=== PATIENT | male | born 1935 | race Caucasian/White ===

== ENCOUNTER 2019-04-14 13:31 | Inpatient (IN) | payer MEDICARE, BC ==
[2019-04-14] MEDS ORDERED: ASPIRIN 325 MG TAB PO STA (14:43)
--- NOTE | 2019-04-14 14:43 | ED ---
General Adult HPI - General Chief complaint: Neuro Symptoms/Deficit Stated complaint: neuro transfer, tia Time Seen by Provider: 04/14/19 13:34 Source: patient, EMS, RN notes reviewed, old records reviewed Mode of arrival: EMS Limitations: no limitations - History of Present Illness Initial comments: Patient is a pleasant 83-year-old male presenting to the emergency Department as a transfer from [facility]. Patient reportedly had an episode of syncope lasting just a minute or 2 per around 10 AM. Following this patient did have right facial droop and slurred speech. That lasted around a minute. Patient is been symptom-free since that time. Patient remained symptom-free at this time. No history of similar symptoms previously. At the other facility patient did have computed tomography scan that was reported as no acute process. Patient was transferred for neurology evaluation. Review of Systems ROS Statement: Those systems with pertinent positive or pertinent negative responses have been documented in the HPI. ROS Other: All systems not noted in ROS Statement are negative. Constitutional: Denies: fever Eyes: Denies: eye pain ENT: Denies: ear pain Respiratory: Denies: cough, dyspnea Cardiovascular: Denies: chest pain Endocrine: Denies: fatigue Gastrointestinal: Denies: abdominal pain Genitourinary: Denies: dysuria Musculoskeletal: Denies: back pain Skin: Denies: rash Neurological: Reports: as per HPI. Denies: headache Past Medical History Smoking Status: Current every day smoker Past Alcohol Use History: None Reported Past Drug Use History: None Reported General Exam Limitations: no limitations General appearance: alert, in no apparent distress Head exam: Present: normocephalic Eye exam: Present: normal appearance, PERRL, EOMI. Absent: nystagmus ENT exam: Present: normal oropharynx Neck exam: Present: normal inspection Respiratory exam: Present: normal lung sounds bilaterally Cardiovascular Exam: Present: irregular rhythm GI/Abdominal exam: Present: soft. Absent: tenderness Extremities exam: Present: normal inspection Neurological exam: Present: alert, CN II-XII intact. Absent: motor sensory deficit Expanded Neurological exam: Present: protecting the airway Patient oriented to: Present: person, place. Absent: time (Family states this is normal) Cranial nerves: EOM's Intact: Normal Sensory exam: Upper Extremity Light Touch: Normal, Lower Extremity Light Touch: Normal Motor strength exam: RUE: 5, LUE: 5, RLE: 5, LLE: 5 Eye Response: (4) open spontaneously Motor Response: (6) obeys commands Verbal Response: (4) confused conversation Psychiatric exam: Present: normal affect, normal mood Skin exam: Present: normal color Course Vital Signs 04/14/19 13:43 Temperature 97.7 F Pulse Rate 48 L Respiratory 16 Rate Blood Pressure 190/86 O2 Sat by Pulse 98 Oximetry Medical Decision Making - Medical Decision Making Patient and family are aware of results and plan. I did review chart from [facility]. Case was discussed in detail with Dr. Mills, who will admit his patient. Disposition Clinical Impression: Transient cerebral ischemia Disposition: ADMITTED IP TO THIS HOSP Is patient prescribed a controlled substance at d/c from ED?: No Referrals: Zion Mills MD [Primary Care Provider] - 1-2 days Decision Time: 14:43
--- NOTE | 2019-04-14 15:29 | US ---
EXAMINATION TYPE: US carotid duplex BILAT DATE OF EXAM: 04/14/2019 COMPARISON: NONE CLINICAL HISTORY: Stenosis. possible TIA, right facial dropping EXAM MEASUREMENTS: RIGHT: Peak Systolic Velocity (PSV) cm/sec ----- Right CCA: 65.4 ----- Right ICA: 85.8 ----- Right ECA: 103 ICA/CCA ratio: 1.3 RIGHT: End Diastole cm/sec ----- Right CCA: 12.1 ----- Right ICA: 19.7 ----- Right ECA: 11.5 LEFT: Peak Systolic Velocity (PSV) cm/sec ----- Left CCA: 58.2 ----- Left ICA: 83.2 ----- Left ECA: 90.4 ICA/CCA ratio: 1.4 LEFT: End Diastole cm/sec ----- Left CCA: 9.8 ----- Left ICA: 13.4 ----- Left ECA: 0.0 VERTEBRALS (direction of flow): Right Vertebral: Antegrade Left Vertebral: Antegrade Rhythm: Normal Heterogeneous plaque bilaterally with no significant stenosis seen IMPRESSION: Mild degree of grayscale atheromatous plaquing with no sonographically evident hemodynam ically significant stenosis within either visualized carotid arterial system. Criteria for Assigning % of Stenosis / Diameter reduction (Estimation based on the indirect measurements of the internal carotid artery velocities (ICA PSV). 1. Normal (no stenosis)=ICA PSV < 125 cm/s: ratio < 2.0: ICA EDV<40 cm/s. 2. Less than 50% stenosis=ICA PSV < 125 cm/s: ratio < 2.0: ICA EDV<40 cm/s. 3. 50 to 69% stenosis=ICA PSV of 125 to 230 cm/s: ration 2.0 ? 4.0: ICA EDV 40-100 cm/s. 4. Greater than 70% stenosis to near occlusion= ICA PSV > 230 cm/s: ratio > 4.0: ICA EDV > 100 cm/s. 5. Near occlusion= ICA PSV velocities may be low or undetectable: variable ratio and ICA EDV. 6. Total occlusion=unable to detect flow.
[2019-04-14] MEDS: SODIUM CHLORIDE 0.9% 1,000 ML IV SCH ×2 (15:55→21:30)
--- NOTE | 2019-04-14 19:28 | XR ---
EXAMINATION TYPE: XR chest 2V DATE OF EXAM: 04/14/2019 COMPARISON: NONE HISTORY: Shortness of breath TECHNIQUE: Frontal and lateral views of the chest are obtained. FINDINGS: Scattered senescent parenchymal changes noted. Hyperinflation compatible with COPD. No evidence for infiltrate. No evidence for atelectasis. Heart size is stable. Mediastinal structures are stable and grossly unremarkable. No evidence for hilar prominence. Degenerative changes dorsal spine. IMPRESSION: 1. No evidence for acute pulmonary disease.
[2019-04-14] MEDS ORDERED: WARFARIN 7.5 MG TAB PO SCH (20:00)
--- NOTE | 2019-04-14 20:10 | P.CNNES ---
History of Present Illness Consult date: 04/14/19 Requesting physician: Baron Blackmon Reason for Consult: TIA History of Present Illness: Patient is a 83-year-old right-handed male, who states that he has not been feeling well, slightly lightheaded dizzy for the last couple days. Today he was doing chores at his home, he was feeling dizzy. He sat down in the chair, and how alert and is 5. When she came in, she states he stated that he was feeling very dizzy and right after he blacked out, passed out although was not too long. When he came to, his noticed that he has slurred speech and right facial droop. He also wanted to go to the restroom, as he was feeling an urge for bowels and bladder. His tried to help him, but before he could go, he passed stools and urine in his pants. He had diarrhea since he had colon surgery for diverticulitis in the past. Patient was brought to [facility]. Patient underwent computed tomography scan of the head, which was normal. Patient was taken to [facility]. Patient's vitals in the ER was blood pressure 146/77, pulse rate 59 and respirations 12. Patient has history of hypertension, hyperlipidemia, legal blindness, atrial fibrillation, cognitive impairment, hard of hearing. Patient has history of macular degeneration, legal blindness, left worse than right. Patient when arrived to the ER, his NIH stroke scale was 0. CT head was negative. There is progression of atrophic changes and abnormal areas of low-attenuation involving the periventricular white matter of both cerebral hemisphere as compared to the prior study. No acute hemorrhage or subdural. Extensive vascular calcification within the vertebrals and basilar artery. 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 Patient was transferred to [facility] for neurological evaluation. Patient has history of smoking 1 pack per day for 60 years. His still smokes. Denies any alcohol. Denies diabetes. Patient has history of atrial fibrillation for which he is on Coumadin. Patient also takes Aricept 5 mg daily for almost 1 year. Patient's Chem-20 showed sodium 143 potassium 3.3, renal functions with BUN 30, creatinine 1.5. Liver panel normal. WBC 5.5, hemoglobin 15.0 and platelets 126. INR 2.62 which is therapeutic. ECG showed atrial fibrillation, left axis deviation probable anteroseptal infarct, old. Review of Systems Completely unremarkable at this time. Denies dizziness or any focal symptoms. Denies any chest pain shortness of breath wheezing or cough. Past Medical History Smoking Status: Current every day smoker Past Alcohol Use History: None Reported Past Drug Use History: None Reported Medications and Allergies Home Medications Medication Instructions Recorded Confirmed Type Atenolol [Tenormin] 25 mg PO DAILY 04/14/19 04/14/19 History Donepezil [Aricept] 5 mg PO DAILY 04/14/19 04/14/19 History Hydrochlorothiazide 12.5 mg PO DAILY 04/14/19 04/14/19 History Lisinopril [Zestril] 20 mg PO DAILY 04/14/19 04/14/19 History Lovastatin [Mevacor] 40 mg PO DAILY 04/14/19 04/14/19 History Memantine [Namenda] 10 mg PO BID 04/14/19 04/14/19 History Omeprazole 20 mg PO BID 04/14/19 04/14/19 History Potassium Chloride ER [K-Dur 10] 10 meq PO MOWEFR 04/14/19 04/14/19 History Warfarin [Coumadin] 5 mg PO [id number] 04/14/19 04/14/19 History Warfarin [Coumadin] 7.5 mg PO MO 04/14/19 04/14/19 History Allergies Allergy/AdvReac Type Severity Reaction Status Date / Time Penicillins Allergy Rash/Hives Verified 04/14/19 15:46 Physical Examination - Vital Signs Vital Signs: Vital Signs Temp Pulse Resp BP Pulse Ox 04/14/19 19:00 65 28 H 04/14/19 18:30 64 18 163/88 04/14/19 18:00 51 L 7 L 155/93 97 04/14/19 17:30 61 16 180/107 98 04/14/19 17:00 61 16 159/82 98 04/14/19 16:30 53 L 14 162/80 97 04/14/19 16:04 49 L 162/80 97 04/14/19 16:00 48 L 15 04/14/19 15:30 16 166/76 04/14/19 15:06 50 L 17 166/76 04/14/19 15:00 50 L 166/76 98 04/14/19 14:30 52 L 181/89 97 04/14/19 14:00 56 L 18 184/88 98 04/14/19 13:43 97.7 F 48 L 16 190/86 98 Intake and Output 04/14/19 04/14/19 04/14/19 06:59 14:59 22:59 Other: Weight 68.039 kg On examination patient is an elderly male, in no distress. He is alert and awake fully oriented. His speech and language functions are normal. Attention and concentration fund of knowledge appears adequate. Detailed cognitive function testing deferred. On cranial nerve examination pupils are round and reacting visual schroeder are full on confrontation. Patient does have macular degeneration with decreased visual acuity. Face has mild right-sided asymmetry. Tongue protrudes the midline. Palatal elevation and sensation normal. On muscle strength testing there is no pronator drift and the strength is normal in arms and legs distally and proximally. Reflexes are 1+ and plantars downgoing. sensory touch is equal. No ataxia for [id number] testing. Tone and bulk of muscles normal. No carotid bruit or murmur. Peripheral pulses present. Assessment and Plan Assessment: * Syncopal spell, possibly vasovagal versus arrhythmia. * Atrial flutter fibrillation, currently on Coumadin with therapeutic INR. * Tobacco user of [id number]. * Hypertension * Hyperlipidemia Plan: * Patient's neurological symptoms have resolved. * Patient underwent carotid Doppler, which revealed mild degree of grayscale atheromatous plaquing with no sonographically evident hemodynamically significant stenosis within either visualized carotid arterial system. Antegrade flow in both vertebral arteries. * Patient will be continued on Coumadin, INR is therapeutic. * Patient was strongly recommended about tobacco cessation. Patient apparently does not appear to be motivated for tobacco cessation. * Consider adding low-dose aspirin 81 mg for stroke prevention related to atherosclerotic cerebrovascular disease. * Awaiting 2-D echo and EEG.
[2019-04-14 20:50] LABS: Basophils # (A) 0.1 k/uL (0-0.2); Basophils % (A) 2 %; Eosinophils # (A) 0.1 k/uL (0-0.7); Eosinophils % (A) 2 %; HGB 13.9 gm/dL (13.0-17.5); Lymphocytes % (A) 42 %; MCH 31.7 pg (25.0-35.0); MCV 96.1 fL (80.0-100.0); Mean Platelet Volume 9.5; Monocytes # (A) 0.4 k/uL (0-1.0); Monocytes % (A) 8 %; Neutrophils # (A) 2.1 k/uL (1.3-7.7); Neutrophils % (A) 44 %; Platelet Count 114 k/uL (150-450); RBC 4.37 m/uL (4.30-5.90); RDW 13.8 % (11.5-15.5); WBC 4.9 k/uL (3.8-10.6)
[2019-04-14] MEDS: MEMANTINE 10 MG TAB PO SCH (21:27)
[2019-04-14] MEDS: PANTOPRAZOLE 40 MG TABLET PO SCH (21:27)
[2019-04-14 21:48] LABS: Albumin 3.8 g/dL (3.5-5.0); Calcium 8.7 mg/dL (8.4-10.2); Potassium 3.4 mmol/L (3.5-5.1); Total Bilirubin 0.7 mg/dL (0.2-1.3); Total Protein 6.9 g/dL (6.3-8.2)
[2019-04-15 03:21] LABS: Appearance,Urine Clear (Clear); Bilirubin,Urine Negative (Negative); Blood,Urine Small (Negative); Color,Urine Yellow; Glucose,Urine (UA) Negative (Negative); Ketones,Urine Negative (Negative); Leukocyte Esterase,Urine Negative (Negative); Mucus,Urine Rare /hpf; Nitrite,Urine Negative (Negative); Protein,Urine Negative (Negative); RBC,Urine 8 /hpf (0-5); Specific Gravity,Urine 1.018 (1.001-1.035); Squamous Epithelial Cell,Urine <1 /hpf (0-4); Urobilinogen,Urine <2.0 mg/dL (<2.0); WBC,Urine <1 /hpf (0-5)
--- NOTE | 2019-04-15 05:58 | HP ---
HISTORY AND PHYSICAL An 83-year-old white male, became lightheaded, dizzy last few days. He apparently felt dizzy and had a syncopal attack at home. He blacked out. His found him. He had some slurred speech. Right facial droop. He had some urinary and stool incontinence when he woke up. History of diarrhea. CT scan of his head in the other hospital, a couple days ago, which was negative. He was admitted for TIA versus syncope workup at this point. PAST MEDICAL HISTORY: Atrial fibrillation, legal blindness, dyslipidemia, hypertension, cognitive impairment, hearing loss, NIH Stroke Scale was 0. He is admitted for neurologic workup to rule out stroke and TIA. Past medical history as mentioned atrial fibrillation on Coumadin. Still smokes. No alcohol. No diabetes mellitus. HOME MEDICINES: Home medicines include: 1. Hydrochlorothiazide 12.5 daily. 2. Aricept 5 mg daily for dementia. 3. Tenormin 25 mg a day for hypertension. 4. Namenda 10 mg b.i.d. for dementia. 5. Mevacor 40 mg daily. 6. Omeprazole 20 mg b.i.d.. 7. Potassium chloride 10 mEq daily. 8. Coumadin 5 mg 6 days a week, 7.5, 1 day a week. SOCIAL HISTORY: Current everyday smoker. No alcohol. No illicit drugs. ALLERGIES: Allergies to PENICILLIN. PHYSICAL EXAMINATION: Vital signs show pulse 60 to 70, respiratory 16 to 28, blood pressure 150s to 180s over 80s to 100s, O2 of 97% to 98% on room air. He is lying in bed. He is fully alert, giving appropriate answers. He can hear, he hears the questions, gives normal responses. Cranial nerves appear to be intact. He has good movement x4 extremities. NECK: No carotid bruit. Peripheral pulses are present. CARDIOVASCULAR: S1, S2. Irregular, irregular rhythm. LUNGS: Are clear. INTEGUMENT: He has some bruising over where an IV was put in his left antecubital area. ASSESSMENT: 1. Syncopal spell, possible vasovagal versus arrhythmia. 2. Atrial fibrillation. 3. Nicotine addiction. 4. Hypertension. 5. Dyslipidemia. 6. Hearing loss. Neurologic workup. Cardiology workup for syncope and monitor to rule out arrhythmias. Carotid Doppler shows no significant stenosis. He is on Coumadin anyway, possibly add aspirin. Await EEG and echo. Please see further orders. MMODL / IJN: [id number] /
[2019-04-15 07:04] LABS: Basophils % (A) 1 %; Eosinophils # (A) 0.2 k/uL (0-0.7); Eosinophils % (A) 3 %; HCT 38.9 % (39.0-53.0); HGB 12.6 gm/dL (13.0-17.5); INR 4.4 (<1.2); Lymphocytes # (A) 2.2 k/uL (1.0-4.8); Lymphocytes % (A) 47 %; MCH 31.7 pg (25.0-35.0); MCHC 32.5 g/dL (31.0-37.0); MCV 97.5 fL (80.0-100.0); Mean Platelet Volume 9.4; Monocytes # (A) 0.3 k/uL (0-1.0); Monocytes % (A) 6 %; Neutrophils # (A) 1.9 k/uL (1.3-7.7); Neutrophils % (A) 40 %; Platelet Count 104 k/uL (150-450); RBC 3.99 m/uL (4.30-5.90); RDW 13.8 % (11.5-15.5); WBC 4.8 k/uL (3.8-10.6)
[2019-04-15 07:08] LABS: Albumin 3.3 g/dL (3.5-5.0); Calcium 8.3 mg/dL (8.4-10.2); Potassium 3.6 mmol/L (3.5-5.1); Total Bilirubin 0.7 mg/dL (0.2-1.3); Total Protein 6.3 g/dL (6.3-8.2)
[2019-04-15] MEDS ORDERED: ASPIRIN 325 MG TAB PO SCH (09:00)
[2019-04-15] MEDS ORDERED: ATENOLOL 25 MG TAB PO SCH (09:00)
--- NOTE | 2019-04-15 10:09 | P.CRDCN ---
History of Present Illness Consult date: 04/15/19 Requesting physician: [place] Consult reason: sycope Chief complaint: Lightheadedness, syncope History of present illness: This is a pleasant 83-year-old gentleman who follows regularly with Dr. Allison in the office, he has a known history of hypertension, hyperlipidemia, legal blindness, persistent atrial fibrillation, heart of hearing, mild dementia, macular degeneration. Patient was brought to [facility] and transferred here for neurology evaluation. According to the , for the past couple of days she's been complaining of feeling lightheaded, and mildly dizzy. Yesterday, patient was sitting in the living room, again just did not felt feel right, complained of feeling mildly dizzy and passed out, he was sitting down at the time so he did not fall onto the floor. According to the he woke up fairly quickly, when he awoke at the states that his right side of his mouth was drooping and he had some mild slurring of speech. Patient also had lost control of his bladder and needed to get to the bathroom quickly because he had to move his bowels. Before making it to the bathroom, patient did lose some bowel function as well. He was however alert and oriented to time person and place and when he woke up. The EMS report was reviewed, the patient's blood pressure on arrival was 182/94, heart rate in the 40s, 97% on room air. Patient had no neuro deficits at the time of their arrival. His EKG performed showed atrial flutter, atypical with slow ventricular response. Patient was initially taken to [facility], lab data performed there, sodium 143, potassium 3.3, BUN 30, creatinine 1.5. Troponin was 0.017. White blood cell count 5.5, hemoglobin 15, platelet count 126. Because of suspicion of possible TIA patient was transferred here to [facility] for neurology service. His EKG on presentation here showed atypical atrial flutter with a slow ventricular response. Carotid Doppler study was performed which revealed a mild degree of atheromatous plaquing with no significantly hemodynamic stenosis. Chest x-ray did not reveal any evidence for acute pulmonary disease. I pressure on arrival here 190/80 with a heart rate in the 40s, 98% on room air. Blood pressure this morning 175/78 with a heart rate in the 40s, 97% on room air. White blood cell count is normal, hemoglobin 12.6, platelet count 104. INR is 4.4. Sodium 137, potassium 3.4 on arrival, 3.6 this morning, BUN 24, creatinine 1.0, troponin 0.023. Patient's home medications include Coumadin, potassium, omeprazole, Namenda, Mevacor, Zestril 20 mg daily, hydrocodone 5 x 12.5 mg daily, Aricept, and Tenormin 25 mg daily. Upon review of the patient's monitor since his arrival here, he has had several episodes of pauses greater than 3 seconds. Past Medical History Past Medical History: Atrial Fibrillation, CVA/TIA, Memory Impairment History of Any Multi-Drug Resistant Organisms: None Reported Additional Past Surgical History / Comment(s): UNABLE TO REMEMBER Past Anesthesia/Blood Transfusion Reactions: No Reported Reaction Smoking Status: Current some day smoker Past Alcohol Use History: None Reported Past Drug Use History: None Reported - Past Family History Father Family Medical History: No Reported History Additional Family Medical History / Comment(s): NEVER MET FATHER Mother Family Medical History: No Reported History Additional Family Medical History / Comment(s): UNBLE TO ANSWER Medications and Allergies Home Medications Medication Instructions Recorded Confirmed Type Atenolol [Tenormin] 25 mg PO DAILY 04/14/19 04/14/19 History Donepezil [Aricept] 5 mg PO DAILY 04/14/19 04/14/19 History Hydrochlorothiazide 12.5 mg PO DAILY 04/14/19 04/14/19 History Lisinopril [Zestril] 20 mg PO DAILY 04/14/19 04/14/19 History Lovastatin [Mevacor] 40 mg PO DAILY 04/14/19 04/14/19 History Memantine [Namenda] 10 mg PO BID 04/14/19 04/14/19 History Omeprazole 20 mg PO BID 04/14/19 04/14/19 History Potassium Chloride ER [K-Dur 10] 10 meq PO MOWEFR 04/14/19 04/14/19 History Warfarin [Coumadin] 5 mg PO SUTUWETHFRSA 04/14/19 04/14/19 History Warfarin [Coumadin] 7.5 mg PO MO 04/14/19 04/14/19 History Allergies Allergy/AdvReac Type Severity Reaction Status Date / Time Penicillins Allergy Rash/Hives Verified 04/14/19 15:46 Physical Exam Vitals: Vital Signs Temp Pulse Pulse Resp BP BP BP 04/15/19 08:00 97.7 F 49 L 15 175/79 04/15/19 04:00 98.1 F 50 L 18 149/74 04/15/19 00:00 50 L 18 04/14/19 22:40 59 L 18 04/14/19 22:28 98.1 F 59 L 18 177/86 04/14/19 21:39 42 L 16 156/87 04/14/19 19:00 65 28 H 04/14/19 18:30 64 18 163/88 04/14/19 18:00 51 L 7 L 155/93 04/14/19 17:30 61 16 180/107 04/14/19 17:00 61 16 159/82 04/14/19 16:30 53 L 14 162/80 04/14/19 16:04 49 L 162/80 04/14/19 16:00 48 L 15 04/14/19 15:30 16 166/76 04/14/19 15:06 50 L 17 166/76 04/14/19 15:00 50 L 166/76 04/14/19 14:30 52 L 181/89 04/14/19 14:00 56 L 18 184/88 04/14/19 13:43 97.7 F 48 L 16 190/86 Pulse Ox 04/15/19 08:00 97 04/15/19 04:00 98 04/15/19 00:00 04/14/19 22:40 04/14/19 22:28 99 04/14/19 21:39 98 04/14/19 19:00 04/14/19 18:30 04/14/19 18:00 97 04/14/19 17:30 98 04/14/19 17:00 98 04/14/19 16:30 97 04/14/19 16:04 97 04/14/19 16:00 04/14/19 15:30 04/14/19 15:06 04/14/19 15:00 98 04/14/19 14:30 97 04/14/19 14:00 98 04/14/19 13:43 98 Intake and Output 04/14/19 04/15/1904/15/20 22:59 06:59 14:59 Other: Voiding Method Toilet Toilet Urinal Urinal Weight 68.039 kg 69.9 kg PHYSICAL EXAMINATION: GENERAL:83-year-old gentleman in no acute distress at the time of my examination HEENT: Head is atraumatic, normocephalic. Pupils equal, round. Sclera anicteric. Conjunctiva are clear. Mucous membranes of the mouth are moist. Neck is supple. There is no elevated jugular venous pressure. No carotid bru it is heard. HEART EXAMINATION: Heart S1 and S2 irregularly irregular a systolic murmur is heard CHEST EXAMINATION: Lungs are clear to auscultation and precussion. No chest wall tenderness is noted on palpation or with deep breathing. ABDOMEN: Soft, nontender. Bowel sounds are heard. No organomegaly noted. EXTREMITIES: 2+ peripheral pulses with no evidence of peripheral edema and no calf tenderness noted. NEUROLOGIC patient is awake, alert and oriented 3 . . Results 04/15/19 06:02 04/15/19 06:02 Cardiac Enzymes 04/14/19 04/14/19 04/15/19 Range/Units 20:39 20:39 06:02 AST 28 33 (17-59) U/L Troponin I 0.023 (0.000-0.034) ng/mL Coagulation 04/15/19 Range/Units 06:02 PT 44.0 H (9.0-12.0) sec Lipids 04/15/19 Range/Units 06:02 Triglycerides 86 (<150) mg/dL Cholesterol 103 (<200) mg/dL HDL Cholesterol 26 L (40-60) mg/dL CBC 04/14/19 04/15/19 Range/Units 20:39 06:02 WBC 4.9 4.8 (3.8-10.6) k/uL RBC 4.37 3.99 L (4.30-5.90) m/uL Hgb 13.9 12.6 L (13.0-17.5) gm/dL Hct 42.0 38.9 L (39.0-53.0) % Plt Count 114 L 104 L (150-450) k/uL Comprehensive Metabolic Panel 04/14/19 04/15/19 Range/Units 20:39 06:02 Sodium 140 137 (137-145) mmol/L Potassium 3.4 L 3.6 (3.5-5.1) mmol/L Chloride 106 105 (98-107) mmol/L Carbon Dioxide 26 25 (22-30) mmol/L BUN 29 H 24 H (9-20) mg/dL Creatinine 1.04 1.03 (0.66-1.25) mg/dL Glucose 115 H 82 (74-99) mg/dL Calcium 8.7 8.3 L (8.4-10.2) mg/dL AST 28 33 (17-59) U/L ALT 21 21 (4-49) U/L Alkaline Phosphatase 68 62 (38-126) U/L Total Protein 6.9 6.3 (6.3-8.2) g/dL Albumin 3.8 3.3 L (3.5-5.0) g/dL Current Medications Generic Name Dose Route Start Last Admin Trade Name Freq PRN Reason Stop Dose Admin Amlodipine Besylate 5 mg 04/15/19 09:30 Norvasc PO DAILY [facility] Aspirin 325 mg 04/15/19 09:00 Aspirin PO DAILY [facility] Atenolol 25 mg 04/15/19 09:00 04/15/19 09:23 Tenormin PO Not Given DAILY [facility] Atorvastatin Calcium 10 mg 04/15/19 09:00 Lipitor PO DAILY [facility] Donepezil HCl 5 mg 04/15/19 09:00 Aricept PO DAILY [facility] Hydrochlorothiazide 12.5 mg 04/15/19 09:00 Hydrodiuril PO DAILY [facility] Sodium Chloride 1,000 mls @ 100 mls/hr 04/14/19 14:45 04/14/19 21:30 Saline 0.9% IV 100 mls/hr .Q10H [facility] Administration Lisinopril 20 mg 04/15/19 09:00 Zestril PO DAILY [facility] Memantine 10 mg 04/14/19 21:00 04/14/19 21:27 Namenda PO 10 mg BID [facility] Administration Pantoprazole Sodium 40 mg 04/14/19 21:00 04/14/19 21:27 Protonix PO 40 mg BID [facility] Administration Potassium Chloride 10 meq 04/16/19 09:00 K-Dur 10 PO MOWEFR [facility] Warfarin Sodium 7.5 mg 04/14/19 20:00 04/14/19 21:26 Coumadin PO 7.5 mg Mo@1800 [facility] Administration Protocol Warfarin Sodium 5 mg 04/15/19 18:00 Coumadin PO [id number]@1800 [facility] Protocol Intake and Output 04/14/19 04/15/19 04/15/19 22:59 06:59 14:59 Other: Voiding Method Toilet Toilet Urinal Urinal Weight 68.039 kg 69.9 kg 04/15/19 06:02 04/15/19 06:02 EKG Interpretations (text) EKG shows atypical atrial flutter with a slow ventricular response Assessment and Plan Plan: Assessment and plan #1 syncope, rule out cardiac causes. Could be secondary to bradycardia and significant pauses #2 typical atrial flutter, with slow ventricular response. Multiple greater than 3 second pauses noted on the monitor #3 nicotine dependence, patient's smokes one pack of cigarettes per day and has smoked for approximately 60 years #4 hypertension #5 hyperlipidemia #6 mild dementia #7 legal blindness #8 hypokalemia Plan We will request an echocardiogram with Doppler study be performed. We will also obtain a TSH level. We will hold the patient's Tenormin at this time. I had a lengthy discussion with the patient and his who is at his bedside, regarding the fact that he may require permanent pacemaker implantation. I also had a long discussion with the regarding the patient's anticoagulation, the states that his INRs have been high and low throughout the years, she w ishes to consider one of the newer anticoagulants, I will look into coverage for that. At this point in time we will hold the Coumadin in view of the fact that the patient may require a pacemaker, if the INR drops below 2 we will initiate heparin. Replace potassium. Further recommendations to follow. DNP note has been reviewed, I agree with a documented findings and plan of care. Patient was seen and examined.
[2019-04-15] MEDS: ATORVASTATIN 10 MG TAB PO SCH (10:20)
[2019-04-15] MEDS: PANTOPRAZOLE 40 MG TABLET PO SCH ×2 (10:21→20:42)
[2019-04-15] MEDS: MEMANTINE 10 MG TAB PO SCH ×2 (10:21→20:42)
[2019-04-15] MEDS: LISINOPRIL 20 MG TAB PO SCH (10:21)
[2019-04-15] MEDS: HYDROCHLOROTHIAZIDE 12.5 MG CAP PO SCH (10:21)
[2019-04-15] MEDS: DONEPEZIL 5 MG TAB PO SCH (10:21)
[2019-04-15] MEDS: amLODIPine 5 MG TAB PO SCH (10:22)
[2019-04-15] MEDS ORDERED: PHYTONADIONE ORAL 5 MG/5 ML ORAL.SYRG PO STA (11:06)
[2019-04-15] MEDS ORDERED: CLINDAMYCIN 600 MG in SODIUM CHLORIDE 0.9% IRRIGATIO 250 ML IRRIGATION ONE (11:16)
[2019-04-15] MEDS ORDERED: CLINDAMYCIN 900 MG in DEXTROSE 5% IN WATER 50 ML IVPB ONE ×2 (11:16)
[2019-04-15] MEDS ORDERED: SODIUM CHLORIDE 0.9% 1,000 ML IV SCH (11:30)
[2019-04-15] MEDS: SODIUM CHLORIDE 0.9% 1,000 ML IV SCH ×2 (12:00→12:37)
--- NOTE | 2019-04-15 14:58 | P.PN ---
Subjective Progress Note Date: 04/15/19 Patient feels fine. No further syncopal episodes. Denies any focal symptoms. Objective - Vital Signs Vital signs: Vital Signs Temp 97.8 F 04/15/19 12:00 Pulse 53 L 04/15/19 12:00 Resp 16 04/15/19 12:00 BP 183/77 04/15/19 12:00 Pulse Ox 98 04/15/19 12:00 Intake & Output 04/14/19 04/15/19 04/15/19 18:59 06:59 18:59 Intake Total 920 Balance 920 Weight 68.039 kg 69.9 kg Intake: Intake, IV Titration 800 Amount Sodium Chloride 0.9% 1, 800 000 ml @ 100 mls/hr IV . Q10H [facility] Rx#:[id number] Oral 120 Other: Voiding Method Toilet Urinal # Voids 1 - Exam Completely nonfocal. - Labs CBC & Chem 7: 04/16/19 06:17 04/16/19 06:17 Labs: Abnormal Lab Results - Last 24 Hours (Table) 04/14/19 04/14/19 04/14/19 Range/Units 20:39 20:39 22:25 RBC (4.30-5.90) m/uL Hgb (13.0-17.5) gm/dL Hct (39.0-53.0) % Plt Count 114 L (150-450) k/uL PT (9.0-12.0) sec INR (<1.2) Potassium 3.4 L (3.5-5.1) mmol/L BUN 29 H (9-20) mg/dL Glucose 115 H (74-99) mg/dL Calcium (8.4-10.2) mg/dL Albumin (3.5-5.0) g/dL HDL Cholesterol (40-60) mg/dL Urine Blood Small H (Negative) Urine RBC 8 H (0-5) /hpf Urine Mucus Rare H (None) /hpf 04/15/19 04/15/19 04/15/19 Range/Units 06:02 06:02 06:02 RBC 3.99 L (4.30-5.90) m/uL Hgb 12.6 L (13.0-17.5) gm/dL Hct 38.9 L (39.0-53.0) % Plt Count 104 L (150-450) k/uL PT 44.0 H (9.0-12.0) sec INR 4.4 H (<1.2) Potassium (3.5-5.1) mmol/L BUN 24 H (9-20) mg/dL Glucose (74-99) mg/dL Calcium 8.3 L (8.4-10.2) mg/dL Albumin 3.3 L (3.5-5.0) g/dL HDL Cholesterol 26 L (40-60) mg/dL Urine Blood (Negative) Urine RBC (0-5) /hpf Urine Mucus (None) /hpf Assessment and Plan Assessment: * Syncopal spell, possibly vasovagal versus arrhythmia. Patient's telemetry monitoring shows sinus pauses of 3-4 seconds. Patient's syncope likely related to cardiac arrhythmia. * Atrial flutter fibrillation, currently on Coumadin with therapeutic INR. * Tobacco user of [id number]. * Hypertension * Hyperlipidemia Plan: * Patient's neurological symptoms have resolved. * Patient underwent carotid Doppler, which revealed mild degree of grayscale atheromatous plaquing with no sonographically evident hemodynamically significant stenosis within either visualized carotid arterial system. Antegrade flow in both vertebral arteries. * Patient will be continued on Coumadin, INR is therapeutic. * Tobacco cessation. * Patient's telemetry monitoring revealed bradyarrhythmia with sinus one pause of 4 second last night while sleeping and while awake and goes up to 3 second pauses. Cardiology following the patient, and are considering a permanent pacemaker placement. 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 * Awaiting 2-D echo results. * EEG completed, we will review results.
--- NOTE | 2019-04-15 16:30 | EEG ---
ELECTROENCEPHALOGRAM REPORT DATE OF SERVICE: 04/15/2019. PREAMBLE: This is an 83-year-old male with a history of syncopal spell. The patient also has possible TIA. This study is performed to evaluate for any epileptiform activity. EEG FINDINGS: A routine 21-channel awake digital EEG recording was accomplished utilizing the 10/20 international system with bipolar and referential montages. The background activity consists of well developed, well regulated, moderate voltage activity in 8-10 Hz alpha. Background is posterior-dominant and reactive to eye opening and closing. Photic driving response was not clearly seen. Drowsiness was seen with appearance of bilaterally symmetric theta frequency rhythm. Stage II sleep was attained with presence of sleep spindles and some vertex waves. No focal or generalized epileptiform activity was seen. EKG rhythm lead revealed significant arrhythmia. IMPRESSION: This is a normal EEG during wakefulness, drowsiness and stage II sleep. No epileptiform activity was seen. EKG channel lead revealed arrhythmia. Correlate clinically. MMODL / IJN: [id number] / [facility]
[2019-04-15] MEDS ORDERED: WARFARIN 5 MG TAB PO SCH (18:00)
[2019-04-16 06:51] LABS: Basophils % (A) 0 %; Eosinophils # (A) 0.2 k/uL (0-0.7); Eosinophils % (A) 4 %; HGB 12.4 gm/dL (13.0-17.5); Lymphocytes # (A) 1.7 k/uL (1.0-4.8); Lymphocytes % (A) 42 %; MCH 32.3 pg (25.0-35.0); MCHC 33.6 g/dL (31.0-37.0); MCV 96.2 fL (80.0-100.0); Mean Platelet Volume 9.8; Monocytes # (A) 0.3 k/uL (0-1.0); Monocytes % (A) 7 %; Neutrophils # (A) 1.7 k/uL (1.3-7.7); Neutrophils % (A) 44 %; Platelet Count 112 k/uL (150-450); RBC 3.85 m/uL (4.30-5.90); RDW 13.8 % (11.5-15.5); WBC 3.9 k/uL (3.8-10.6)
[2019-04-16 06:52] LABS: INR 1.6 (<1.2); Prothrombin Time 15.9 sec (9.0-12.0)
[2019-04-16 07:03] LABS: Calcium 8.8 mg/dL (8.4-10.2); Potassium 3.7 mmol/L (3.5-5.1)
--- NOTE | 2019-04-16 07:29 | ECHOF ---
Referral Reason:Thrombus MEASUREMENTS -------- HEIGHT: 175.3 cm WEIGHT: 69.9 kg BP: 149/74 RVIDd: 3.6 cm (< 3.3) IVSd: 1.2 cm (0.6 - 1.1) LVIDd: 4.5 cm (3.9 - 5.3) LVPWd: 1.1 cm (0.6 - 1.1) IVSs: 1.8 cm LVIDs: 2.9 cm LVPWs: 1.8 cm LA Diam: 4.3 cm (2.7 - 3.8) LAESV Index (A-L): 50.31 ml/m Ao Diam: 3.2 cm (2.0 - 3.7) AV Cusp: 1.4 cm (1.5 - 2.6) MV EXCURSION: 17.245 mm (> 18.000) MV EF SLOPE: 120 mm/s (70 - 150) EPSS: 0.7 cm AV maxP.53 mmHg AV meanP.76 mmHg AR PHT: 562 ms RAP: 15.00 mmHg RVSP: 52.36 mmHg TAPSE: 16.66 mm FINDINGS -------- Undetermined rhythm. This was a technically good study. The left ventricular size is normal. There is borderline concentric left ventricular hypertrophy. Overall left ventricular systolic function is normal with, an EF between 55 - 60 %. The right ventricle is mildly enlarged. LA is severely dilated >40 ml/m2 The right atrium is normal in size. Interatrial and interventricular septum intact. There is moderate aortic valve sclerosis. There is moderate aortic regurgitation. There is modera te aortic stenosis present. Peak/mean gradient across the Aortic Valve is 42.53mmHg / 24.76mmHg. Mild mitral annular calcification present. [id number] mitral regurgitation is present. Mild tricuspid regurgitation present. There is moderate pulmonary hypertension. The right ventric ular systolic pressure, as measured by Doppler, is 52.36mmHg. There is no pulmonic regurgitation present. The aortic root size is normal. Normal inferior vena cava with less than 50% inspiratory collapse consistent with estimated right atr ial pressure of 15 mmHg. The inferior vena cava is mildly dilated. There is no pericardial effusion. CONCLUSIONS -------- 1. Undetermined rhythm. 2. This was a technically good study. 3. The left ventricular size is normal. 4. There is borderline concentric left ventricular hypertrophy. 5. The right ventricle is mildly enlarged. 6. LA is severely dilated >40 ml/m2 7. The right atrium is normal in size. 8. Interatrial and interventricular septum intact. 9. There is moderate aortic valve sclerosis. 10. There is moderate aortic regurgitation. 11. There is moderate aortic stenosis present. 12. Peak/mean gradient across the Aortic Valve is 42.53mmHg / 24.76mmHg. 13. Mild mitral annular calcification present. 14. [id number] mitral regurgitation is present. 15. Mild tricuspid regurgitation present. 16. There is moderate pulmonary hypertension. 17. The right ventricular systolic pressure, as measured by Doppler, is 52.36mmHg. 18. There is no pulmonic regurgitation present. 19. The aortic root size is normal. 20. Normal inferior vena cava with less than 50% inspiratory collapse consistent with estimated right atrial pressure of 15 mmHg. 21. The inferior vena cava is mildly dilated. 22. There is no pericardial effusion. DYNAMOMETER TESTER: Alyce Capellan RDCS
[2019-04-16] MEDS: LISINOPRIL 20 MG TAB PO SCH (09:11)
[2019-04-16] MEDS: SODIUM CHLORIDE 0.9% 1,000 ML IV SCH (09:11)
[2019-04-16] MEDS: amLODIPine 5 MG TAB PO SCH (09:11)
[2019-04-16] MEDS: MEMANTINE 10 MG TAB PO SCH ×2 (09:11→21:21)
[2019-04-16] MEDS: ATORVASTATIN 10 MG TAB PO SCH (09:11)
[2019-04-16] MEDS: PANTOPRAZOLE 40 MG TABLET PO SCH ×2 (09:11→21:21)
[2019-04-16] MEDS: POTASSIUM CHLORIDE ER 10 MEQ TAB.ER.PRT PO SCH (09:11)
[2019-04-16] MEDS: HYDROCHLOROTHIAZIDE 12.5 MG CAP PO SCH (09:11)
[2019-04-16] MEDS: DONEPEZIL 5 MG TAB PO SCH (09:11)
--- NOTE | 2019-04-16 16:12 | P.PN ---
Subjective Progress Note Date: 04/16/19 Patient feels fine. No further syncopal episodes. Denies any focal symptoms. Objective - Vital Signs Vital signs: Vital Signs Temp 96.1 F L 04/16/19 11:26 Pulse 57 L 04/16/19 12:00 Resp 16 04/16/19 12:00 BP 158/75 04/16/19 11:26 Pulse Ox 96 04/16/19 11:26 Intake & Output 04/15/19 04/16/19 04/16/19 18:59 06:59 18:59 Intake Total 1040 500 720 Output Total 400 Balance 1040 100 720 Weight 67.8 kg Intake: Intake, IV Titration 800 500 Amount Clindamycin 900 mg In 500 Dextrose 5% in Water 50 ml @ 50 mls/hr IVPB ONCE ONE Rx#:[id number] Sodium Chloride 0.9% 1, 800 000 ml @ 100 mls/hr IV . Q10H [facility] Rx#:[id number] Oral 240 720 Output: Urine 400 Other: Voiding Method Toilet Toilet # Voids 1 2 - Exam Completely nonfocal. 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 - Labs CBC & Chem 7: 04/16/19 06:17 04/16/19 06:17 Labs: Abnormal Lab Results - Last 24 Hours (Table) 04/16/19 04/16/19 04/16/19 Range/Units 06:17 06:17 06:17 RBC 3.85 L (4.30-5.90) m/uL Hgb 12.4 L (13.0-17.5) gm/dL Hct 37.0 L (39.0-53.0) % Plt Count 112 L (150-450) k/uL PT 15.9 H (9.0-12.0) sec INR 1.6 H (<1.2) BUN 21 H (9-20) mg/dL Assessment and Plan Assessment: * Syncopal spell, possibly vasovagal versus arrhythmia. Patient's telemetry monitoring shows sinus pauses of 3-4 seconds. Patient's syncope likely related to cardiac arrhythmia. * Atrial flutter fibrillation, currently on Coumadin with therapeutic INR. * Tobacco user of [id number]. * Hypertension * Hyperlipidemia Plan: * Patient's neurological symptoms have resolved. * Patient underwent carotid Doppler, which revealed mild degree of grayscale atheromatous plaquing with no sonographically evident hemodynamically significant stenosis within either visualized carotid arterial system. Antegrade flow in both vertebral arteries. * Patient will be continued on Coumadin, INR is therapeutic. * Tobacco cessation. * Patient undergoing placement of permanent pacemaker in a.m. 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 * 2-D echo showed borderline concentric LVH. Left atrium is severely dilated. Interatrial and interventricular septum intact. Moderate aortic valve sclerosis. Moderate aortic stenosis and aortic regurgitation. Mild to moderate mitral regurgitation. Cardiology following. * EEG completed, was normal during wakefulness, drowsiness and stage II sleep. No epileptiform activity first seen. * Neurologically patient is clear for discharge. * Please call neurology if any other concerns. We will sign off.
--- NOTE | 2019-04-16 17:51 | P.PN ---
Subjective Progress Note Date: 04/16/19 This is an 83-year-old gentleman admitted with syncope, possible vasovagal versus arrhythmia. Evaluated by both neurology and cardiology with recommendations noted and appreciated. EGD reported as normal with no epileptiform activity. Cleared by neurology. Patient is scheduled for permanent pacemaker tomorrow. No further syncope episodes. Denies any chest pain, palpitations or shortness of breath. Denies any lightheadedness, dizziness or focal deficits. Objective - Vital Signs Vital signs: Vital Signs Temp 96.1 F L 04/16/19 11:26 Pulse 57 L 04/16/19 12:00 Resp 16 04/16/19 12:00 BP 158/75 04/16/19 11:26 Pulse Ox 96 04/16/19 11:26 Intake & Output 04/15/19 04/16/19 04/16/19 18:59 06:59 18:59 Intake Total 1040 500 720 Output Total 400 Balance 1040 100 720 Weight 67.8 kg Intake: Intake, IV Titration 800 500 Amount Clindamycin 900 mg In 500 Dextrose 5% in Water 50 ml @ 50 mls/hr IVPB ONCE ONE Rx#:[id number] Sodium Chloride 0.9% 1, 800 000 ml @ 100 mls/hr IV . Q10H [facility] Rx#:[id number] Oral 240 720 Output: Urine 400 Other: Voiding Method Toilet Toilet # Voids 1 2 - Exam PHYSICAL EXAM: VITAL SIGNS: [As above] GENERAL: Sitting up in bed, no acute distress HEENT: Conjunctivae normal. Oral mucosa moist NECK: No JVD. No thyroid enlargement. No LNs CARDIOVASCULAR: S1, S2 irregular, systolic murmur RESPIRATION: Breath sounds diminished in the bases. No rhonchi or crackles. No bronchial breathing. ABDOMEN: Soft, nontender . No guarding. no masses palpable. No ascites, No hepatosplenomegaly.Bowel sounds heard. LEGS: No edema. no swelling PSYCHIATRY: Alert and oriented X3, mood and affect normal. NERVOUS SYSTEM: Cranial N 2-12 grossly normal. Moves all 4 limbs. Diffuse weakness No focal deficits. Strength and sensation grossly intact.. Skin: no lesions, no rash - Labs CBC & Chem 7: 04/16/19 06:17 04/16/19 06:17 Labs: Abnormal Lab Results - Last 24 Hours (Table) 04/16/19 04/16/19 04/16/19 Range/Units 06:17 06:17 06:17 RBC 3.85 L (4.30-5.90) m/uL Hgb 12.4 L (13.0-17.5) gm/dL Hct 37.0 L (39.0-53.0) % Plt Count 112 L (150-450) k/uL PT 15.9 H (9.0-12.0) sec INR 1.6 H (<1.2) BUN 21 H (9-20) mg/dL Assessment and Plan Assessment: Syncope, possible vasovagal, possible arrhythmia, bradycardia, pauses greater than 3 seconds Chronic persistent Atrial fibrillation, atrial flutter Ongoing nicotine dependence Hypertension Dyslipidemia Hearing loss Legal blindness Borderline concentric left ventricular hypertrophy with EF 55-60% Moderate aortic regurgitation Moderate aortic stenosis Mild to moderate mitral regurgitation Moderate pulmonary hypertension Plan: Continue on current medication regime, monitoring and symptomatically treatment. Coumadin on hold, Permanent pacemaker as mentioned above scheduled for tomorrow. Follow closely with both neurology and cardiology. Further recommendations to follow. The impression and plan of care has been dictated as directed. : I performed a history and examination of this patient, discussed the same with the dictator. I agree with the dictator's note ,documented as a scribe. Any additional findings or plans will be noted.
[2019-04-17] MEDS: amLODIPine 5 MG TAB PO SCH (06:37)
[2019-04-17] MEDS: LISINOPRIL 20 MG TAB PO SCH (06:37)
[2019-04-17] MEDS: PANTOPRAZOLE 40 MG TABLET PO SCH ×2 (06:37→20:02)
[2019-04-17] MEDS: ATORVASTATIN 10 MG TAB PO SCH (06:37)
[2019-04-17] MEDS: MEMANTINE 10 MG TAB PO SCH ×2 (06:37→20:02)
[2019-04-17] MEDS ORDERED: CLINDAMYCIN 900 MG in DEXTROSE 5% IN WATER 50 ML IVPB ONE ×2 (07:00)
[2019-04-17] MEDS ORDERED: CLINDAMYCIN 600 MG in SODIUM CHLORIDE 0.9% IRRIGATIO 250 ML IRRIGATION ONE (07:00)
[2019-04-17 07:28] LABS: INR 1.2 (<1.2); Prothrombin Time 11.9 sec (9.0-12.0)
[2019-04-17] MEDS ORDERED: SODIUM CHLORIDE 0.9% 500 ML 500 ML IV ONE (07:51)
[2019-04-17] MEDS ORDERED: IOPAMIDOL-300 50ML BTL IV ONE (08:10)
[2019-04-17] MEDS ORDERED: fentaNYL (PF) 50 MCG/ML 2 ML AMP ONE (08:12)
[2019-04-17] MEDS ORDERED: fentaNYL (PF) 50 MCG/ML 2 ML AMP IV ONE (08:15)
[2019-04-17] MEDS ORDERED: ACETAMINOPHEN TAB 325 MG TAB PO PRN (08:48)
--- NOTE | 2019-04-17 08:59 | P.PCN ---
Date of Procedure: 04/17/19 Preoperative Diagnosis: Atrial fibrillation, sick sinus syndrome, syncope Postoperative Diagnosis: The same Procedure(s) Performed: Permanent pacemaker implantation, single chamber Operative Findings: HISTORY: This is a 83-year-old gentleman with history of of atrial fibrillation, sick sinus syndrome and syncope was admitted to the hospital with bradycardia and pauses. Patient was evaluated by Dr. Allison and requested permanent pacemaker implantation. CONSENT:I have discussed the risks, benefits and alternative therapies for the above-mentioned procedure and for both sedation/analgesia as well as necessary blood product administration, if indicated, as they pertain to this patient. The patient has indicated understanding and acceptance of the risks and procedures discussed. PROCEDURE: Patient was brought to the lab in a fasting state. Patient was prepped and draped in the usual fashion. Patient was given IV sedation with fentanyl and Versed. The skin below the left clavicle was infiltrated with lidocaine. An incision was made parallel to deltopectoral groove was deepened until the pectoral fascia was exposed. A pocket was created by blunt dissection and cautery. Axillary venography was performed to delineate the course of the axillary vein. A single venous stick was performed into extrathoracic portion of the axillary vein and a single sheath was advanced over the guidewires and left in subclavian vein. Conscious Sedation: Versed 0mg Fentanyl 12.5 g Duration 29minutes LEADS: VENTRICULAR: This is manufactured by [employer]. Model number is 4076-58. The serial number is [id number]. THE DEVICE: This is manufactured by [employer]. Model number is [id number] and the serial number is [id number] The ventricular lead is maneuvered l with help of a straight and curved stylets into the left ventricle apical region. Satisfactory position was obtained and threshold measurements were made. The atrial lead was then maneuvered into the right atrial appendage. And thresholds were obtained. THRESHOLDS: VENTRICLE: The minimal patient threshold is 0.25 V at a pulse width of 0.4 with impedance of 1178. R-wave:15.39 The leads and pulse generator remained in the pocket after it was washed with antibiotics. Pocket was closed in the usual fashion. The fascia was closed with 2-0 Prolene ,the subcutaneous tissue was closed with 3-0 Prolene and the skin was closed with 4-0 Prolene. PROGRAMMING: MODE: VVIR RATE: 60 to 110 OUTPUT: Ventricle: 3.5 FINAL IMPRESSION: 1. Axillary venography #2. Single-chamber permanent pacemaker implantation. COMPLICATIONS: None PLAN: Patient will be monitored on the telemetry unit. Prophylactic antibacterial be continued. Chest x-ray in the morning
[2019-04-17] MEDS: HYDROCHLOROTHIAZIDE 12.5 MG CAP PO SCH (10:16)
[2019-04-17] MEDS: DONEPEZIL 5 MG TAB PO SCH (10:37)
[2019-04-17] MEDS: SODIUM CHLORIDE 0.9% 1,000 ML IV SCH (11:59)
[2019-04-17] MEDS ORDERED: CLINDAMYCIN 900 MG in DEXTROSE 5% IN WATER 50 ML IVPB SCH ×2 (14:00)
--- NOTE | 2019-04-17 16:25 | P.PN ---
Subjective Progress Note Date: 04/17/19 This is an 83-year-old gentleman admitted with syncope, possible vasovagal versus arrhythmia. Evaluated by both neurology and cardiology with recommendations noted and appreciated. EGD reported as normal with no epileptiform activity. Cleared by neurology. Patient is scheduled for permanent pacemaker tomorrow. No further syncope episodes. Denies any chest pain, palpitations or shortness of breath. Denies any lightheadedness, dizziness or focal deficits 04/17/2019 scheduled for permanent pacemaker placement this morning. Denies any further syncopal episodes. Denies lightheadedness, dizziness or focal deficits. Denies any chest pain or palpitations. Denies shortness of breath. Objective - Vital Signs Vital signs: Vital Signs Temp 97.8 F 04/17/19 04:00 Pulse 75 04/17/19 04:00 Resp 16 04/17/19 04:00 BP 154/67 04/17/19 04:00 Pulse Ox 93 L 04/17/19 04:00 Intake & Output 04/16/19 04/17/19 04/17/19 18:59 06:59 18:59 Intake Total 1200 56 Balance 1200 56 Weight 66.2 kg Intake: IV 56 Oral 1200 Other: Voiding Method Toilet Toilet # Voids 2 1 - Exam PHYSICAL EXAM: VITAL SIGNS: [As above] GENERAL: Sitting up in bed, no acute distress HEENT: Conjunctivae normal. Oral mucosa moist NECK: No JVD. No thyroid enlargement. No LNs CARDIOVASCULAR: S1, S2 irregular, systolic murmur RESPIRATION: Breath sounds diminished in the bases. No rhonchi or crackles. ABDOMEN: Soft, nontender . No guarding. no masses palpable. Bowel sounds heard. LEGS: No edema. no swelling PSYCHIATRY: Alert and oriented X3, mood and affect normal. NERVOUS SYSTEM: Cranial N 2-12 grossly normal. Moves all 4 limbs. Diffuse weakness No focal deficits. Skin: no rash - Labs CBC & Chem 7: 04/16/19 06:17 04/16/19 06:17 Labs: Abnormal Lab Results - Last 24 Hours (Table) 04/17/19 Range/Units 06:30 INR 1.2 H (<1.2) Assessment and Plan Assessment: Syncope, possible vasovagal, possible arrhythmia, bradycardia, pauses greater than 3 seconds, sick sinus syndrome, pacemaker placement pending Chronic persistent Atrial fibrillation, atrial flutter Ongoing nicotine dependence Hypertension Dyslipidemia Hearing loss Legal blindness Borderline concentric left ventricular hypertrophy with EF 55-60% Moderate aortic regurgitation Moderate aortic stenosis Mild to moderate mitral regurgitation Moderate pulmonary hypertension Plan: Continue on current medication regime, monitoring and symptomatically treatment. Coumadin on hold, Permanent pacemaker scheduled for today. Discharge planning in progress for tomorrow. The impression and plan of care has been dictated as directed. : I performed a history and examination of this patient, discussed the same with the dictator. I agree with the dictator's note ,documented as a scribe. Any additional findings or plans will be noted.
[2019-04-17] MEDS: CLINDAMYCIN 900 MG in DEXTROSE 5% IN WATER 50 ML IVPB SCH ×4 (17:14→23:41)
[2019-04-17] MEDS ORDERED: WARFARIN 5 MG TAB PO SCH (18:00)
[2019-04-18] MEDS: CLINDAMYCIN 900 MG in DEXTROSE 5% IN WATER 50 ML IVPB SCH ×4 (05:17→10:05)
[2019-04-18] MEDS: SODIUM CHLORIDE 0.9% 1,000 ML IV SCH (06:48)
[2019-04-18 07:14] LABS: INR 1.2 (<1.2); Prothrombin Time 11.8 sec (9.0-12.0)
--- NOTE | 2019-04-18 07:36 | XR ---
EXAMINATION TYPE: XR chest 2V DATE OF EXAM: 04/18/2019 COMPARISON: 04/14/2019 HISTORY: Lead placement check TECHNIQUE: Frontal and lateral views of the chest are obtained. FINDINGS: Interval insertion of a single lead left-sided cardiac device with ventricular lead in jasmin ce. Surgical clips are seen at the gastroesophageal junction. Strand-like density along the right inf rahilar region likely relates to atelectasis. COPD is seen as there is pulmonary hyperinflation and f lattening of the diaphragms. These osseous demineralization. No pneumothorax seen. IMPRESSION: Interval placement of a single ventricular lead left-sided cardiac device. No postproced ural pneumothorax. Strand-like density along the right infrahilar region likely relates to atelectasi s.
[2019-04-18 08:14] VITALS: RESP 16
[2019-04-18] MEDS: amLODIPine 5 MG TAB PO SCH (08:16)
[2019-04-18] MEDS: ATORVASTATIN 10 MG TAB PO SCH (08:16)
[2019-04-18] MEDS: DONEPEZIL 5 MG TAB PO SCH (08:17)
[2019-04-18] MEDS: HYDROCHLOROTHIAZIDE 12.5 MG CAP PO SCH (08:17)
[2019-04-18] MEDS: MEMANTINE 10 MG TAB PO SCH (08:18)
[2019-04-18] MEDS: LISINOPRIL 20 MG TAB PO SCH (08:18)
[2019-04-18] MEDS: PANTOPRAZOLE 40 MG TABLET PO SCH (08:18)
[2019-04-18] MEDS: POTASSIUM CHLORIDE ER 10 MEQ TAB.ER.PRT PO SCH (08:19)
[2019-04-18 11:16] VITALS: BP 156/75; PULSE 60; TEMP 98.3
--- NOTE | 2019-04-18 12:50 | P.DS ---
Providers Date of admission: 04/14/19 14:44 Expected date of discharge: 04/18/19 Attending physician: Zion Mills Consults: 04/14/19 14:44 Consult Physician Urgent Consulting Provider: Rosi Magana Consult Reason/Comments: tia Do you want consulting provider notified?: Yes Consult Physician Urgent Consulting Provider: Alex Allison Consult Reason/Comments: syncope w tia, a fib Do you want consulting provider notified?: Yes Primary care physician: Zion Mills Hospital Course: Final Diagnoses: Syncope, possible vasovagal, possible arrhythmia, bradycardia, pauses greater than 3 seconds, sick sinus syndrome, status post permanent pacemaker placement Chronic persistent Atrial fibrillation, atrial flutter Ongoing nicotine dependence Hypertension Dyslipidemia Hearing loss 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 Evaluated by both neurology and cardiology with recommendations noted and appreciated. EGD reported as normal with no epileptiform activity. Cleared by neurology. Patient is scheduled for permanent pacemaker tomorrow. No further syncope episodes. Denies any chest pain, palpitations or shortness of breath. Denies any lightheadedness, dizziness or focal deficits 04/17/2019 scheduled for permanent pacemaker placement this morning. Denies any further syncopal episodes. Denies lightheadedness, dizziness or focal deficits. Denies any chest pain or palpitations. Denies shortness of breath. Status post permanent pacemaker placement. Significant clinical improvement. Cleared by cardiology for discharge. Beta jojo resumed as per cardiology, patient with chronic A. fib. Patient is being discharged home today in a stable condition with guarded prognosis. Denies chest pain, palpitations or shortness of breath. Denies lightheadedness, dizziness or focal deficits. The impression and plan of care has been dictated as directed. : I performed a history and examination of this patient, discussed the same with the dictator. I agree with the dictator's note ,documented as a scribe. Any additional findings or plans will be noted. Health Concerns: Please fax new list of home meds to [facility] at time of DC [phone]. Patient Condition at Discharge: Stable Plan - Discharge Summary Discharge Rx Participant: No New Discharge Prescriptions: New amLODIPine [Norvasc] 5 mg PO DAILY #30 tab Apixaban [Eliquis] 2.5 mg PO BID #60 tab Atenolol [Tenormin] 25 mg PO DAILY #30 tab Continue Potassium Chloride ER [K-Dur 10] 10 meq PO MOWEFR Omeprazole 20 mg PO BID Memantine [Namenda] 10 mg PO BID Lovastatin [Mevacor] 40 mg PO DAILY Lisinopril [Zestril] 20 mg PO DAILY Hydrochlorothiazide 12.5 mg PO DAILY Donepezil [Aricept] 5 mg PO DAILY Discontinued Atenolol [Tenormin] 25 mg PO DAILY Warfarin [Coumadin] 5 mg PO SUTUWETHFRSA Warfarin [Coumadin] 7.5 mg PO MO Discharge Medication List Donepezil [Aricept] 5 mg PO DAILY 04/14/19 [History] Hydrochlorothiazide 12.5 mg PO DAILY 04/14/19 [History] Lisinopril [Zestril] 20 mg PO DAILY 04/14/19 [History] Lovastatin [Mevacor] 40 mg PO DAILY 04/14/19 [History] Memantine [Namenda] 10 mg PO BID 04/14/19 [History] Omeprazole 20 mg PO BID 04/14/19 [History] Potassium Chloride ER [K-Dur 10] 10 meq PO MOWEFR 04/14/19 [History] Apixaban [Eliquis] 2.5 mg PO BID #60 tab 04/18/19 [Rx] Atenolol [Tenormin] 25 mg PO DAILY #30 tab 04/18/19 [Rx] amLODIPine [Norvasc] 5 mg PO DAILY #30 tab 04/18/19 [Rx] Follow up Appointment(s)/Referral(s): [facility] [Provider Group] - 04/24/19 3:30 pm (Pacemaker device check at [facility], then follow up with appointment with Dr. Allison.) iZon Mills MD [Primary Care Provider] - 04/28/19 2:45 pm Patient Instructions/Handouts: Bradycardia (DC), Pacemaker (DC) Activity/Diet/Wound Care/Special Instructions: Beta jojo recommendations as per cardiology , patient has history of A. fib Pacemaker Instructions: 1. Keep dressing dry and intact for 5 days. You may cover the area with saran or cling wrap, prior to a shower. 2. The dressing will be removed in the Device [facility] at [facility]. Absorbable sutures were used to close the wound. 3. Avoid raising the left arm above the shoulder level. (4-week restriction). 4. Avoid arm movements, like backscratching, rubbing your head, or pulling on a cord with your left arm. (4-week restriction). 5. Gentle range of motion movements of the left shoulder should be performed to avoid a frozen shoulder. (Pendulum exercises). 6. The opposite arm may be used freely. 7. Avoid driving for 7 days. 8. Avoid activities such as golfing, swimming, week whacking, lifting more than 10 pounds of weight, bowling, gymnastics and weight training/lifting. (6-week restriction). 9. Activities such as chopping wood, pull-ups, power lifting, welding, and being around an induction cooktop will always be a problem and can interfere with your pacemaker. 10.Your arm sling is only a reminder to not lift your arm above your head. You do not need to keep the arm completely immobilized. You are free to move your arm and use it for normal activities. In case of any problems, please call [facility], [place] @ [phone].
== END 2019-04-18 11:09 | disposition home or self-care (01) | DRG 243 ==
LOC: EC 13:31 → 3SCARD 14:44
PROVIDERS: ADMIT Family Medicine; ATTEND Family Medicine
PROC: 02HK3JZ Insertion of Pacemaker Lead into Right Ventricle, Percutaneous Approach (ICD-10-PCS; principal; 2019-04-17 07:30)
PROC: 0JH604Z Insertion of Pacemaker, Single Chamber into Chest Subcutaneous Tissue and Fascia, Open Approach (ICD-10-PCS; principal; 2019-04-17 07:30)
DX: I49.5 Sick sinus syndrome (principal); I48.19 Other persistent atrial fibrillation; I48.4 Atypical atrial flutter; I27.20 Pulmonary hypertension, unspecified; F03.90 Unspecified dementia, unspecified severity, without behavioral disturbance, psychotic disturbance, mood disturbance, and anxiety; E87.6 Hypokalemia; I10 Essential (primary) hypertension; E78.5 Hyperlipidemia, unspecified; H91.90 Unspecified hearing loss, unspecified ear; H54.8 Legal blindness, as defined in USA; I08.0 Rheumatic disorders of both mitral and aortic valves; R19.7 Diarrhea, unspecified; H35.30 Unspecified macular degeneration; F17.210 Nicotine dependence, cigarettes, uncomplicated; Z71.6 Tobacco abuse counseling; Z79.01 Long term (current) use of anticoagulants; Z79.899 Other long term (current) drug therapy; Z88.0 Allergy status to penicillin
CPT/HCPCS: 33207; 71046; 80048; 80053; 80061; 81001; 84443; 84484; 85025; 85610; 93005; 93306; 93880; 95816; 96360; 96361; 99285

== ENCOUNTER 2022-05-28 10:50 | Emergency (ER) | payer MEDICARE, BC ==
--- NOTE | 2022-05-28 11:37 | CT ---
EXAMINATION TYPE: CT brain gisela dalton con DATE OF EXAM: 05/28/2022 COMPARISON: None HISTORY: Fall, posterior head laceration. CT DLP: 1382 mGycm, Automated exposure control for dose reduction was used. CONTRAST: Patient injected with 0 mL of Isovue 300. CT of the brain is performed utilizing 3 mm thick sections through the posterior fossa and 3 mm thick sections through the remaining calvarium. Study is performed within 24 hours of arrival to the hospital. No abnormal hyperdensity is present to suggest an acute intracranial hemorrhage. No mass lesion is evident. No acute infarcts are evident. Periventricular white matter hypodensity is present, likely on the ba sis of chronic white matter ischemic changes. Ventricles and sulci are prominent for the patient age. Paranasal sinuses and mastoid air cells within the [id number] are clear. There is some mild soft tissue swelling over the left parietal occipital region. IMPRESSIONS: 1. Atrophy with confluent periventricular white matter ischemic type changes. 2. No acute intracranial process is radiographically evident. Follow-up MRI can be performed as clini mariann indicated. CT cervical spine. COMPARISON: None CT of the cervical spine is performed in the axial plane at 2 mm thick sections. Reconstructed image s in the coronal, and sagittal plane are reviewed on the computer. No acute fractures are evident. Vertebral body alignment is normal. There is diffuse narrowing of disc height throughout the cervical spine. This appears greatest at C6- 7. Endplate spurring is present posteriorly at C4-5 C5-6. Vertebral body heights are preserved. No spinal canal stenosis is evident. Uncovertebral joint hypertrophy is present with foraminal narrowing C4-5 through C6-7. IMPRESSIONS: 1. Degenerative disc changes and foraminal narrowing due to uncovertebral joint hypertrophy lower cer vical spine. 2. No acute osseous abnormality cervical spine.
[2022-05-28] MEDS ORDERED: DIPH,PERTUS(ACELL)TETVAC-LF 0.5 ML VIAL IM ONE (11:42)
--- NOTE | 2022-05-28 11:43 | ED ---
Fall HPI - General Chief Complaint: Fall Stated Complaint: Fall,Head Injury Time Seen by Provider: 05/28/22 11:04 Source: patient, family, EMS Mode of arrival: EMS - History of Present Illness Initial Comments: Patient is an 87-year-old male who presents to the emergency department for fall. Patient has memory impairment he resides at a nursing facility. Today he had a witnessed fall. Patient hit his head on the door and has small laceration in the back of his scalp. He did not lose consciousness. He is on blood thinners. Patient is confused which is his baseline according to . Denies headache, nausea, vomiting. Denies other injury. Denies chest pain and shortness of breath. Last tetanus unknown. - Related Data Home Medications Medication Instructions Recorded Confirmed Donepezil [Aricept] 5 mg PO DAILY 04/14/19 04/14/19 Lovastatin [Mevacor] 40 mg PO DAILY 04/14/19 04/14/19 Memantine [Namenda] 10 mg PO BID 04/14/19 04/14/19 Omeprazole 20 mg PO BID 04/14/19 04/14/19 Potassium Chloride ER [K-Dur 10] 10 meq PO MOWEFR 04/14/19 04/14/19 hydroCHLOROthiazide 12.5 mg PO DAILY 04/14/19 04/14/19 lisinopriL [Zestril] 20 mg PO DAILY 04/14/19 04/14/19 Previous Rx's Medication Instructions Recorded Apixaban [Eliquis] 2.5 mg PO BID #60 tab 04/18/19 amLODIPine [Norvasc] 5 mg PO DAILY #30 tab 04/18/19 atenoloL [Tenormin] 25 mg PO DAILY #30 tab 04/18/19 Allergies Allergy/AdvReac Type Severity Reaction Status Date / Time Penicillins Allergy Rash/Hives Verified 05/28/22 11:00 Review of Systems ROS Statement: Those systems with pertinent positive or pertinent negative responses have been documented in the HPI. ROS Other: All systems not noted in ROS Statement are negative. Past Medical History Past Medical History: Atrial Fibrillation, CVA/TIA, Memory Impairment History of Any Multi-Drug Resistant Organisms: None Reported Additional Past Surgical History / Comment(s): UNABLE TO REMEMBER Past Anesthesia/Blood Transfusion Reactions: No Reported Reaction Past Psychological History: No Psychological Hx Reported Smoking Status: Never smoker Past Alcohol Use History: None Reported Past Drug Use History: None Reported - Past Family History Father Family Medical History: No Reported History Additional Family Medical History / Comment(s): NEVER MET FATHER Mother Family Medical History: No Reported History Additional Family Medical History / Comment(s): UNBLE TO ANSWER General Exam Limitations: no limitations General appearance: alert, in no apparent distress Head exam: Present: normocephalic. Absent: normal inspection (2 cm laceration over left posterior parietal scalp) Eye exam: Present: normal appearance, PERRL, EOMI. Absent: scleral icterus, conjunctival injection, periorbital swelling Respiratory exam: Present: normal lung sounds bilaterally. Absent: respiratory distress, wheezes, rales, rhonchi, stridor Cardiovascular Exam: Present: regular rate, normal rhythm, normal heart sounds. Absent: systolic murmur, diastolic murmur, rubs, gallop, clicks GI/Abdominal exam: Present: soft, normal bowel sounds. Absent: distended, tenderness, guarding, rebound, rigid Neurological exam: Present: alert, CN II-XII intact. Absent: oriented X3 (baseline) Psychiatric exam: Present: normal affect, normal mood Skin exam: Present: warm, dry, intact, normal color. Absent: rash Course Vital Signs 05/28/22 05/28/22 05/28/22 10:54 10:56 11:44 Temperature 98 F 98 F Pulse Rate 72 67 Respiratory 18 14 Rate Blood Pressure 140/96 132/72 O2 Sat by Pulse 96 Oximetry Procedures - Laceration Laceration #1 Indication: laceration Site: scalp Size (cm): 2 Description: linear Patient Tolerated Procedure: well, no complications Additional Comments: 1 staple Medical Decision Making - Medical Decision Making Was pt. sent in by a medical professional or institution (, PA, IN HOME SALES REPRESENTATIVE, urgent care, hospital, or fpc...) When possible be specific @ -No Did you speak to anyone other than the patient for history (EMS, parent, family, police, friend...)? What history was obtained from this source @ -No Did you review nursing and triage notes (agree or disagree)? Why? @ -I reviewed and agree with nursing and triage notes Were old charts reviewed (outside hosp., previous admission, EMS record, old EKG, old radiological studies, urgent care reports/EKG's, fpc records)? Report findings @ -No old charts were reviewed Differential Diagnosis (chest pain, altered mental status, abdominal pain women, abdominal pain men, vaginal bleeding, weakness, fever, dyspnea, syncope, headache, dizziness, GI bleed, back pain, seizure, CVA, palpatations, mental health)? @ -Differential Headache: Migraine, tension, cluster, carbon monoxide, central venous thrombosis, pension karma temporal arteritis, acute closure glaucoma, intercranial hemorrhage, mastoiditis, sinusitis, head injury, this is not meant to be an all-inclusive list. EKG interpreted by me (3pts min.). @ -As above X-rays interpreted by me (1pt min.). @ -None done CT interpreted by me (1pt min.). @ -Yes, CT of the brain and C-spine is negative for acute process U/S interpreted by me (1pt. min.). @ -None done What testing was considered but not performed or refused? (CT, X-rays, U/S, labs)? Why? @ -None] What meds were considered but not given or refused? Why? @ -[None] Did you discuss the management of the patient with other professionals (professionals i.e. , PA, IN HOME SALES REPRESENTATIVE, lab, RT, psych nurse, social worker psychiatric, resistor coater, teacher, field artillery officer, bilingual case manager)? Give summary @ -[No] Was smoking cessation discussed for >3mins.? @ -[No] Was critical care preformed (if so, how long)? @ -[No] Were there social determinants of health that impacted care today? How? (Homelessness, low income, unemployed, alcoholism, drug addiction, transportation, low edu. Level, literacy, decrease access to med. care, long-term, rehab)? @ -[No] Was there de-escalation of care discussed even if they declined (Discuss DNR or withdrawal of care, Hospice)? DNR status @ -[No] What co-morbidities impacted this encounter? (DM, HTN, Smoking, COPD, CAD, Cancer, CVA, ARF, Chemo, Hep., AIDS, mental health diagnosis, sleep apnea, morbid obesity)? @ -[None] Was patient admitted / discharged? Hospital course, mention meds given and route, prescriptions, significant lab abnormalities, going to OR and other pertinent info. @ -Patient presenting after fall. No loss of consciousness, no vomiting. At baseline mental status according to . He does take blood thinners. Has small laceration in the back of his scalp. CT of the brain and C-spine negative for acute process. Laceration approximated decently with one staple. Patient would not allow me to put a second staple in. Tetanus updated. Patient to return in 7 days for staple removal. Undiagnosed new problem with uncertain prognosis? @ -[No] Drug Therapy requiring intensive monitoring for toxicity (Heparin, Nitro, Insulin, Cardizem)? @ -[No] Were any procedures done? @ -yes, laceration repair Diagnosis/symptom? @ -Fall Acute, or Chronic, or Acute on Chronic? @ -acute Uncomplicated (without systemic symptoms) or Complicated (systemic symptoms)? @ -uncomplicated Side effects of treatment? @ -[No] Exacerbation, Progression, or Severe Exacerbation? @ -[No] Poses a threat to life or bodily function? How? (Chest pain, [place], [place], pneumonia, PE, COPD, DKA, ARF, appy, cholecystitis, CVA, Diverticulitis, Homicidal, Suicidal, threat to staff... and all critical care pts) @ -[No] Dr. Walker is my attending Disposition Clinical Impression: Fall Disposition: HOME SELF-CARE Condition: Good Instructions (If sedation given, give patient instructions): Laceration (ED), Fall Prevention for Older Adults (ED), Staple Care (ED) Additional Instructions: Take Tylenol for pain. Avoid anti-inflammatory medications such as Motrin, Aleve, Advil for the next 48 hours. Keep wound clean and dry. You may shower but no harsh scrubbing. Return for staple removal in 7 days. Return to the emergency department if you experience new, concerning, or worsening symptoms. Is patient prescribed a controlled substance at d/c from ED?: No Referrals: Zion Mills MD [Primary Care Provider] - 1-2 days
[2022-05-28 11:45] VITALS: RESP 14
[2022-05-28 12:16] VITALS: BP 127/76; PULSE 72; TEMP 97.9
== END 2022-05-28 12:59 | disposition home or self-care (01) ==
LOC: EC 10:50
DX: S01.01XA Laceration without foreign body of scalp, initial encounter (principal); I48.91 Unspecified atrial fibrillation; Z86.73 Personal history of transient ischemic attack (TIA), and cerebral infarction without residual deficits; Z88.0 Allergy status to penicillin; Z79.899 Other long term (current) drug therapy; Z23 Encounter for immunization; W01.198A Fall on same level from slipping, tripping and stumbling with subsequent striking against other object, initial encounter
CPT/HCPCS: 12001; 70450; 72125; 90471; 90715; 99285